=== PATIENT | male | born 1995 | race Caucasian/White ===

== ENCOUNTER 2016-07-01 16:36 | Emergency (ER) | payer OTHER, BC ==
[2016-07-01 17:03] VITALS: BP 130/65
--- NOTE | 2016-07-01 17:11 | UC ---
Throat Pain/Nasal Doni HPI - HPI Summary HPI Summary: sore throat x 2 days no fever, no cough, no nasal congestion - History of Current Complaint Chief Complaint: UCGeneralIllness Stated Complaint: PAINFUL TO SWALLOW Time Seen by Provider: 07/01/16 16:51 Hx Obtained From: Patient Onset/Duration: Gradual Onset, Lasting Days - 2, Still Present Severity: Severe Cough: None Associated Signs & Symptoms: Positive: Negative. Negative: Sinus Discomfort, Nasal Discharge, Fever, Vomiting, Rash - Allergies/Home Medications Allergies/Adverse Reactions: Allergies Allergy/AdvReac Type Severity Reaction Status Date / Time No Known Allergies Allergy Verified 07/01/16 17:03 Home Medications: Home Medications Ibuprofen TAB* [Advil TAB*] 400 mg PO Q6H PRN 07/01/16 [History Confirmed ] PMH/Surg Hx/FS Hx/Imm Hx Previously Healthy: Yes - Surgical History Surgical History: None - Family History Known Family History: Positive: Other - postive FMH lacerations Negative: Diabetes - Social History Alcohol Use: Weekly Alcohol Amount: 10 Substance Use Type: None Smoking Status (MU): Current Every Day Smoker Amount Used/How Often: HOOKA Length of Time of Smoking/Using Tobacco: 1 YR Have You Smoked in the Last Year: Yes Review of Systems Constitutional: Negative Skin: Negative Eyes: Negative ENT: Sore Throat Respiratory: Negative All Other Systems Reviewed And Are Negative: Yes Physical Exam Triage Information Reviewed: Yes Appearance: Well-Appearing, No Pain Distress, Well-Nourished Vital Signs: Initial Vital Signs Temp 99.3 F 07/01/16 16:57 Pulse 67 07/01/16 16:57 Resp 24 07/01/16 16:57 BP 130/65 07/01/16 16:57 Pulse Ox 100 07/01/16 16:57 Vital Signs Reviewed: Yes Eye Exam: Normal Eyes: Positive: Conjunctiva Clear ENT: Positive: Normal ENT inspection, Hearing grossly normal, Pharyngeal erythema. Negative: Nasal congestion, Nasal drainage Neck: Positive: Supple, Nontender, No Lymphadenopathy Respiratory: Positive: Chest non-tender, Lungs clear, Normal breath sounds Cardiovascular: Positive: RRR, No Murmur, Pulses Normal Throat Pain/Nasal Course/Dx - Differential Dx/Diagnosis Provider Diagnoses: pharyngitis Discharge - Discharge Plan Condition: Stable Disposition: HOME Patient Education Materials: Pharyngitis (ED) Referrals: Non Staff,Doctor [Primary Care Provider] - If Needed
== END 2016-07-01 17:40 | disposition home or self-care (01) ==
LOC: UCCORT 16:36
DX: J02.9 Acute pharyngitis, unspecified (principal); F17.210 Nicotine dependence, cigarettes, uncomplicated
CPT/HCPCS: 87651; 99211; G0463

== ENCOUNTER 2018-08-17 11:49 | Emergency (ER) | payer OTHER, BC ==
[2018-08-17 12:29] VITALS: BP 120/73
--- NOTE | 2018-08-17 12:37 | UC ---
Hand/Wrist HPI - HPI Summary HPI Summary: 23-year-old male presents with complaints of left middle finger pain, swelling, and bruising after injuring last evening while playing flag football. States he jammed the finger when he attempted to grab the flag of another player. He did note that the finger appeared to be dislocated and he reset himself. He has been taking ibuprofen with relief of the pain. Denies any numbness or tingling. - History Of Current Complaint Chief Complaint: UCUpperExtremity Stated Complaint: LEFT MIDDLE FINGER INJURY Time Seen by Provider: 08/17/18 12:34 Hx Obtained From: Patient Pain Intensity: 8 - Allergies/Home Medications Allergies/Adverse Reactions: Allergies Allergy/AdvReac Type Severity Reaction Status Date / Time No Known Allergies Allergy Verified 08/17/18 12:21 PMH/Surg Hx/FS Hx/Imm Hx Previously Healthy: Yes - Denies significant PMH - Surgical History Surgical History: None - Family History Known Family History: Positive: Non-Contributory - Social History Occupation: Student Lives: Dormitory/Roommates Alcohol Use: Weekly Alcohol Amount: 10 Substance Use Type: Marijuana Substance Use Comment - Amount & Last Used: 08/15/18 Smoking Status (MU): Never Smoked Tobacco Amount Used/How Often: HOOKA Length of Time of Smoking/Using Tobacco: 1 YR Have You Smoked in the Last Year: No Review of Systems All Other Systems Reviewed And Are Negative: Yes Skin: Positive: Bruising Respiratory: Positive: Negative Cardiovascular: Positive: Negative Gastrointestinal: Positive: Negative Genitourinary: Positive: Negative Motor: Negative: Weakness Neurovascular: Negative: Decreased Sensation Musculoskeletal: Positive: Arthralgia - See HPI, Decreased ROM Neurological: Positive: Negative Is Patient Immunocompromised?: No Physical Exam - Summary Physical Exam Summary: GENERAL APPEARANCE: Well developed, well nourished, alert and cooperative, and appears to be in no acute distress. CARDIAC: Normal S1 and S2. No S3, S4 or murmurs. Rhythm is regular. There is no peripheral edema, cyanosis or pallor. Extremities are warm and well perfused. Capillary refill is less than 2 seconds. Peripheral pulses intact. LUNGS: Clear to auscultation without rales, rhonchi, wheezing or diminished breath sounds. ABDOMEN: Positive bowel sounds. Soft, nondistended, nontender. No guarding or rebound. No masses or hepatosplenomegally. MUSKULOSKELETAL: Normal muscular development. Normal gait. EXTREMITIES: Significant ecchymosis and edema of the left middle finger with decreased range of motion and tenderness over the middle phalanx. Sensation and circulation intact. SKIN: Skin normal color, texture and turgor. Triage Information Reviewed: Yes Vital Signs: Initial Vital Signs Temp 97.8 F 08/17/18 12:22 Pulse 60 08/17/18 12:22 Resp 18 08/17/18 12:22 BP 120/73 08/17/18 12:22 Pulse Ox 100 08/17/18 12:22 Vital Signs Reviewed: Yes Diagnostics - Radiology No standard instances Radiology Interpretation Completed By: Radiologist Summary of Radiographic Findings: Order Information: FINGER LEFT MIDDLE. Accession Number: [id number]. CPT: 16521. HISTORY: pain, swelling s/p sport injury . COMPARISONS: None relevant available at the time of dictation. VIEWS : 4, Frontal, lateral, and oblique views of the third digit of the left hand. FINDINGS: BONE DENSITY: Normal. BONES: There is a comminuted oblique fracture of the middle phalanx of the third digit with articular extension to the PIP joint. There is minimal displacement. JOINTS: There is no arthropathy. ALIGNMENT: There is no dislocation. SOFT TISSUES: Unremarkable. OTHER FINDINGS : None. IMPRESSION: COMMINUTED FRACTURE OF THE MIDDLE PHALANX OF THE THIRD DIGIT Hand/Wrist Course/Dx - Course Course Of Treatment: 23-year-old male presents with complaints of left middle finger pain, swelling, and bruising after injuring last evening while playing flag football. States he jammed the finger when he attempted to grab the flag of another player. He did note that the finger appeared to be dislocated and he reset himself. He has been taking ibuprofen with relief of the pain. Denies any numbness or tingling. Afebrile. Vital signs stable. Exam reveals significant ecchymosis and edema of the left middle finger with decreased range of motion and tenderness over the middle phalanx. Sensation and circulation intact. X-ray shows a comminuted fracture of the left middle phalanx that extends into the PIP with mild displacement. I spoke with Dr. Chamberlain who states he will evaluate the patient in his office today. Patient is to go directly to Dr. Chamberlain's office from here for further evaluation and treatment. - Differential Dx/Diagnosis Differential Diagnosis/HQI/PQRI: Contusion, Dislocation, Fracture, Sprain Provider Diagnosis: Displaced fracture of phalanx of left middle finger Discharge - Sign-Out/Discharge Documenting (check all that apply): Patient Departure All imaging exams completed and their final reports reviewed: Yes - Discharge Plan Condition: Stable Disposition: HOME Patient Education Materials: Finger Fracture (ED) Referrals: No Primary Care Phys,NOPCP [Primary Care Provider] - David Clemons MD [Medical Doctor] - Additional Instructions: The x-ray performed in the clinic today showed a comminuted displaced fracture of the middle phalanx of your left middle finger. Go directly to Dr. Clemons's office from here for further evaluation and treatment. - Billing Disposition and Condition Condition: STABLE Disposition: Home - Attestation Statements Provider Attestation: I was available for consult. This patient was seen by the JARAD. The patient was not presented to, seen by, or examined by me. -Demar
== END 2018-08-17 13:17 | disposition home or self-care (01) ==
LOC: UCCORT 11:49
DX: S62.623A Displaced fracture of middle phalanx of left middle finger, initial encounter for closed fracture (principal); W23.0XXA Caught, crushed, jammed, or pinched between moving objects, initial encounter; Y93.62 Activity, american flag or touch football; Y92.9 Unspecified place or not applicable
CPT/HCPCS: 73140; 99211; G0463